=== PATIENT | female | born 1960 | race Caucasian/White ===

== ENCOUNTER 2016-05-05 11:36 | Emergency (ER) | payer OTHER ==
[2016-05-05 11:36] VITALS: BMI 21.7
[2016-05-05 12:03] VITALS: O2SAT 100
[2016-05-05] MEDS ORDERED: Sodium Chloride 0.9% 1,000 ML IV STA (12:10)
[2016-05-05 12:17] LABS: ADD MANUAL DIFF? NO
[2016-05-05 12:18] LABS: BASO # 0.02 K/mm3 (0.0-2.0); BASO % 0.4 % (0.0-3.0); EOS # 0.1 (0.0-0.7); EOS % 1.4 % (1.5-5.0); GRAN # 0.98 (1.4-6.5); HEMATOCRIT 41.5 % (36.0-48.0); LYMPH # 3.7 (1.2-3.4); MEAN CELL VOLUME 87.6 fL (80.0-105.0); MEAN CORPUSCULAR HEMOGLOBIN 29.5 pg (25.0-35.0); MEAN CORPUSCULAR HGB CONC 33.7 g/dl (31.0-37.0); MEAN PLATELET VOLUME 12.3 fl (7.0-11.0); MONO # 0.4 (0.1-0.6); MONO % 7.9 % (1.0-6.0); PLATELET COUNT 141 10^3/uL (120.0-450.0); WHITE BLOOD COUNT 5.2 10^3/ul (4.5-11.0)
--- NOTE | 2016-05-05 12:18 | ED PDOC ---
Arrival/HPI - General Chief Complaint: Chest Pain Time Seen by Provider: 05/05/16 11:39 Historian: Patient - History of Present Illness Narrative History of Present Illness (Text): 05/05/16 12:12 55 year old male presents to the emergency department with chest congestion since yesterday. She states she was feeling lightheaded/dizzy yesterday. She also reports she saw a weird "black line" that went down her visual field which spontaneously resolved. No loss of consciousness. Patient states she has not been drinking or eating well the past couple of days. She reports her niece has a cold. Denies headache, chest pain, or back pain. Time/Duration: 24 hours Symptom Onset: Gradual Symptom Course: Unchanged Modifying Factors (Text): None Associated Symptoms (Text): None Past Medical History - Provider Review Nursing Documentation Reviewed: Yes - Infectious Disease Hx of Infectious Diseases: None - Tetanus Immunization Tetanus Immunization: Unknown - Cardiac Hx Hyperlipemia: Yes - Pulmonary Hx Respiratory Disorders: No - Neurological Hx Neurological Disorder: No - HEENT Hx HEENT Disorder: No - Renal Hx Renal Disorder: No - Endocrine/Metabolic Hx Endocrine Disorders: No - Hematological/Oncological Hx Blood Disorders: No - Integumentary Hx Dermatological Disorder: No - Musculoskeletal/Rheumatological Hx Musculoskeletal Disorders: No - Gastrointestinal Hx Gastritis: Yes - Genitourinary/Gynecological Hx Genitourinary Disorders: No - Psychiatric Hx Psychophysiologic Disorder: No Hx Depression: No Hx Emotional Abuse: No Hx Physical Abuse: No Hx Substance Use: No - Surgical History Hx Section: Yes - Anesthesia Hx Anesthesia: Yes Hx Anesthesia Reactions: No Hx Malignant Hyperthermia: No - Suicidal Assessment Feels Threatened In Home Enviroment: No Family/Social History - Physician Review Nursing Documentation Reviewed: Yes Family/Social History: Unknown Family HX Smoking Status: Never Smoked Hx Alcohol Use: No Hx Substance Use: No Hx Substance Use Treatment: No Allergies/Home Meds Allergies/Adverse Reactions: Allergies No Known Allergies Allergy (Verified 05/05/16 11:49) Home Medications: Home Meds Medication Instructions Recorded Confirmed Pantoprazole [Protonix] 40 mg PO DAILY 05/04/14 05/05/16 Simvastatin [Zocor] 20 mg PO DAILY 07/08/15 05/05/16 Review of Systems - Physician Review All systems were reviewed & negative as marked: Yes - Review of Systems Cardiovascular: Other (chest congestion). absent: Chest Pain Musculoskeletal: absent: Back Pain Neurological: absent: Headache Physical Exam Vital Signs Reviewed: Yes Vital Signs Temp Pulse Resp BP Pulse Ox 05/05/16 12:01 69 20 132/63 100 05/05/16 11:46 98.5 F 74 18 122/78 99 Temperature: Afebrile Blood Pressure: Normal Pulse: Regular Respiratory Rate: Normal Appearance: Positive for: Well-Appearing, Non-Toxic, Comfortable Pain Distress: None Mental Status: Positive for: Alert and Oriented X 3 - Systems Exam Head: Present: Atraumatic, Normocephalic Pupils: Present: PERRL Extroacular Muscles: Present: EOMI Conjunctiva: Present: Normal Mouth: Present: Moist Mucous Membranes Neck: Present: Normal Range of Motion Respiratory/Chest: Present: Clear to Auscultation, Good Air Exchange. No: Respiratory Distress, Accessory Muscle Use Cardiovascular: Present: Regular Rate and Rhythm, Normal S1, S2. No: Murmurs Abdomen: Present: Normal Bowel Sounds. No: Tenderness, Distention, Peritoneal Signs Back: Present: Normal Inspection Upper Extremity: Present: Normal Inspection. No: Cyanosis, Edema Lower Extremity: Present: Normal Inspection. No: Edema Neurological: Present: GCS=15, CN II-XII Intact, Speech Normal, Motor Func Grossly Intact, Normal Sensory Function, Normal Cerebellar Funct, Norm Deep Tendon Reflexes, Gait Normal, Memory Normal, Normal 2Pt Descrimination Skin: Present: Warm, Dry, Normal Color. No: Rashes Psychiatric: Present: Alert, Oriented x 3, Normal Insight, Normal Concentration Medical Decision Making ED Course and Treatment: Impression: 55 year old male presents to the emergency department with chest congestion since yesterday. Differential Diagnosis included but are not limited to: Dizziness secondary to dehydration vs viral illness Plan: -- CT head w/o contrast, EKG, Chest X-ray -- IV fluids -- Urinalysis -- Reassess and disposition Prior Visits: Notes and results from previous visits were reviewed. Patient last seen in the ED on 07/08/15 with nausea and discharged home. PROCEDURE: CT HEAD WITHOUT CONTRAST [employer] Service Sales Representative : HAYLEE DELACRUZ MD IMPRESSION: No acute intracranial abnormality. 1.1 cm left frontal parasagittal extra-axial lesion is statistically most compatible with a meningioma. A dedicated MRI of the brain without and with intravenous contrast on a nonemergent basis is advised for further evaluation. Progress Notes: EKG shows NSR at 74 BPM with normal intervals, normal axis, no ST segment elevations, interpreted by me. 05/05/16 14:46 CT head negative. CXR negative. Patient feels better after IVF. She will follow up with her PMD this week. No longer has dizziness. - Lab Interpretations Lab Results: 05/05/16 11:55 05/05/16 11:55 Lab Results 05/05/16 11:55: WBC 5.2, RBC 4.74, Hgb 14.0, Hct 41.5, MCV 87.6, MCH 29.5, MCHC 33.7, RDW 13.0, Plt Count 141, MPV 12.3 H, Gran % 19.0 L, Lymph % (Auto) 71.3 H , [place] % (Auto) 7.9 H, Eos % (Auto) 1.4 L, Baso % (Auto) 0.4, Gran # 0.98 L, Lymph # 3.7 H, [place] # 0.4, Eos # 0.1, Baso # 0.02, Sodium 141, Potassium 3.9, Chloride 102, Carbon Dioxide 27, Anion Gap 16, BUN 19, Creatinine 0.9, Est GFR ( Amer) > 60, Est GFR (Non-Af Amer) > 60, Random Glucose 96, Calcium 9.8, Magnesium 2.0, Total Bilirubin 0.6, AST 23, ALT 20, Alkaline Phosphatase 54, Total Protein 8.0, Albumin 4.2, Globulin 3.8, Albumin/Globulin Ratio 1.1 - RAD Interpretation Radiology Orders: 05/05/16 12:09 CHEST TWO VIEWS (PA/LAT) [RAD] Stat 05/05/16 12:10 HEAD W/O CONTRAST [CT] Stat - EKG Interpretation Interpreted by ED Physician: Yes Type: 12 lead EKG - Medication Orders Current Medication Orders: Discontinued Medications Sodium Chloride (Sodium Chloride 0.9%) 1,000 mls @ 999 mls/hr IV .Q1H1M STA Stop: 05/05/16 13:10 Last Admin: 05/05/16 12:44 Dose: 999 MLS/HR eMAR Start Stop Document 05/05/16 12:44 GROUNDMAN (Rec: 05/05/16 12:45 GROUNDMAN [id number]) Intravenous Solution Start Date 05/05/16 Start Time 12:45 End Date 05/05/16 End time 13:45 Total Infusion Time 60 - Scribe Statement The provider has reviewed the documentation as recorded by the Claudia Han Provider Scribe Attestation: All medical record entries made by the Scribe were at my direction and personally dictated by me. I have reviewed the chart and agree that the record accurately reflects my personal performance of the history, physical exam, medical decision making, and the department course for this patient. I have also personally directed, reviewed, and agree with the discharge instructions and disposition. Disposition/Present on Arrival - Present on Arrival Any Indicators Present on Arrival: No History of DVT/PE: No History of Uncontrolled Diabetes: No Urinary Catheter: No History of Decub. Ulcer: No History Surgical Site Infection Following: None - Disposition Have Diagnosis and Disposition been Completed?: Yes Diagnosis: Dizziness Disposition: HOME/ ROUTINE Disposition Time: 14:47 Patient Plan: Discharge Patient Problems: Current Active Problems Problem Status Diagnosed Dizziness Acute Condition: IMPROVED Discharge Instructions (ExitCare): Dizziness (ED) Additional Instructions: Ricardo, thank you for letting us take care of you today. Your provider was Dr. Gale. You were treated for Dizziness. The emergency medical care you received today was directed at your acute symptoms. If you were prescribed any medication, please fill it and take as directed. It may take several days for your symptoms to resolve. Return to the Emergency Department if your symptoms worsen, do not improve, or if you have any other problems. Please contact your doctor or call one of the physicians/clinics you have been referred to that are listed on the Patient Visit Information form that is included in your discharge packet. Bring any paperwork you were given at discharge with you along with any medications you are taking to your follow up visit. Our treatment cannot replace ongoing medical care by a primary care provider (PCP) outside of the emergency department. Thank you for allowing the [facility] team to be part of your care today. If you had an X-Ray or CT scan: A Radiologist will review the ED reading if any change in treatment is needed we will contact you. If you had a blood, urine, or wound culture: It will take several days for the results, if any change in treatment is needed we will contact you. If you had an STI test: It will take 48 hours for the results. Please call after 1 week if you have not heard back. Referrals: [facility] [employer] [facility], [Non-Staff] - Follow up with primary Forms: WORK NOTE
[2016-05-05 12:32] LABS: ALB/GLOB RATIO 1.1 (1.1-1.8); ALKALINE PHOSPHATASE 54 U/L (38-133); ALT/SGPT 20 U/L (7-56); AST/SGOT 23 U/L (15-39); BILIRUBIN,TOTAL 0.6 mg/dL (0.2-1.3); BLOOD UREA NITROGEN 19 mg/dL (7-21); CALCIUM 9.8 mg/dL (8.4-10.5); CARBON DIOXIDE 27 mmol/L (21-33); CHLORIDE 102 mmol/L (98-107); GFR AFRICAN-AMERICAN > 60; GLUCOSE,RANDOM 96 mg/dL (70-110); POTASSIUM 3.9 mmol/L (3.6-5.0); SODIUM 141 mmol/L (132-148)
--- NOTE | 2016-05-05 13:07 | CT ---
PROCEDURE: CT HEAD WITHOUT CONTRAST. HISTORY: Dizziness COMPARISON: None available. TECHNIQUE: Axial computed tomography images were obtained through the head/brain without intravenous contrast. Radiation dose: Total exam DLP = 725.84 mGy-cm. FINDINGS: HEMORRHAGE: No intracranial hemorrhage. BRAIN: Bradley-white matter differentiation is preserved. There is no territorial infarction, vasogenic edema or mass effect. There is a 1.1 cm hyperdense left frontal parasagittal extra-axial lesion without mass effect on the underlying frontal lobe. . A 5 mm high attenuation focus in the subjacent left frontal lobe is thought to be due to partial volume averaging. VENTRICLES: The ventricles are normal in size, shape and configuration. CALVARIUM: The skull base and calvarium are normal. PARANASAL SINUSES: Predominantly clear. MASTOID AIR CELLS: Predominantly clear. OTHER FINDINGS: None. IMPRESSION: No acute intracranial abnormality. 1.1 cm left frontal parasagittal extra-axial lesion is statistically most compatible with a meningioma. A dedicated MRI of the brain without and with intravenous contrast on a nonemergent basis is advised for further evaluation.
[2016-05-05 13:59] LABS: LYMPH % 71.3 % (22.0-35.0)
--- NOTE | 2016-05-05 14:27 | RAD ---
HISTORY: chest congestion r/o pna COMPARISON: 05/18/2014 TECHNIQUE: Chest PA and lateral FINDINGS: LUNGS: Micro COPD. There is no focal consolidation. PLEURA: No significant pleural effusion identified. No pneumothorax apparent. CARDIOVASCULAR: Normal. OSSEOUS STRUCTURES: No significant abnormalities. VISUALIZED UPPER ABDOMEN: Normal. OTHER FINDINGS: None. IMPRESSION: No active pulmonary disease. COPD.
[2016-05-05 14:58] VITALS: BP 107/62; PULSE 58; RESP 18; TEMP 98.6
--- NOTE | 2016-05-05 18:23 | CARD ---
APPROVED REPORT EKG Measurement Heart [id number] <Conclusion> Normal sinus rhythm Normal ECG
== END 2016-05-05 15:01 | disposition home or self-care (01) ==
LOC: ED 12:29
DX: R42 Dizziness and giddiness (principal)
CPT/HCPCS: 70450; 71020; 80053; 83735; 85025; 93005; 96360; 99283; J7040

== ENCOUNTER 2017-07-17 20:20 | Observation (INO) | payer MEDICAID, OTHER ==
--- NOTE | 2017-07-17 20:44 | ED PDOC ---
Arrival/HPI - General Chief Complaint: Weakness/Neurological Deficit Time Seen by Provider: 07/17/17 20:34 Historian: Patient - History of Present Illness Narrative History of Present Illness (Text): 07/17/17 20:43 Abida Ricardo is a 56 year old female, whose past medical history includes hyperlipidemia, who presents to the Emergency department accompanied by family complaining of left-sided facial numbness sensation. Patient states she has been experiencing left-sided facial numbness sensation since yesterday with associated dizziness. Patient notes she feel near-syncopal at times. Patient denies any focal deficits, fever, chills, chest pain, shortness of breath, nausea, vomiting, diarrhea, urinary symptoms, back pain, neck pain, headache, trauma/injury, or any other complaints. Symptom Onset: Gradual Symptom Course: Unchanged Activities at Onset: Light Context: Home Past Medical History - Provider Review Nursing Documentation Reviewed: Yes - Infectious Disease Hx of Infectious Diseases: None - Tetanus Immunization Tetanus Immunization: Unknown - Reproductive Menopause: Yes - Cardiac Hx Hyperlipemia: Yes - Pulmonary Hx Respiratory Disorders: No - Neurological Hx Neurological Disorder: No - HEENT Hx HEENT Disorder: No - Renal Hx Renal Disorder: No - Endocrine/Metabolic Hx Endocrine Disorders: No - Hematological/Oncological Hx Blood Disorders: No - Integumentary Hx Dermatological Disorder: No - Musculoskeletal/Rheumatological Hx Musculoskeletal Disorders: No - Gastrointestinal Hx Gastritis: Yes - Genitourinary/Gynecological Hx Genitourinary Disorders: No - Psychiatric Hx Depression: No Hx Substance Use: No - Surgical History Hx Cholecystectomy: Yes - Anesthesia Hx Anesthesia: Yes Hx Anesthesia Reactions: No Hx Malignant Hyperthermia: No - Suicidal Assessment Feels Threatened In Home Enviroment: No Family/Social History - Physician Review Nursing Documentation Reviewed: Yes Family/Social History: Unknown Family HX Smoking Status: Never Smoked Hx Alcohol Use: No Hx Substance Use: No Hx Substance Use Treatment: No Allergies/Home Meds Allergies/Adverse Reactions: Allergies No Known Allergies Allergy (Verified 07/17/17 20:39) Home Medications: Home Meds Medication Instructions Recorded Confirmed No Known Home Med 07/17/17 07/17/17 Review of Systems - Physician Review All systems were reviewed & negative as marked: Yes - Review of Systems Constitutional: Normal. absent: Fevers Eyes: Normal ENT: Normal Respiratory: Normal. absent: SOB, Cough Cardiovascular: Other (+near-syncopal). absent: Chest Pain Gastrointestinal: Normal. absent: Abdominal Pain, Diarrhea, Nausea, Vomiting Genitourinary Female: Normal. absent: Dysuria, Frequency, Hematuria, Urine Output Changes Musculoskeletal: Normal. absent: Back Pain, Neck Pain Skin: Normal. absent: Rash Neurological: Dizziness, Other (+left facial numbness) Endocrine: Normal Hemo/Lymphatic: Normal Psychiatric: Normal Physical Exam Vital Signs Reviewed: Yes Vital Signs Temp Pulse Resp BP Pulse Ox 07/17/17 20:33 97.6 F 80 18 122/79 100 Temperature: Afebrile Blood Pressure: Normal Pulse: Regular Respiratory Rate: Normal Appearance: Positive for: Well-Appearing, Non-Toxic, Comfortable Pain Distress: None Mental Status: Positive for: Alert and Oriented X 3 - Systems Exam Head: Present: Atraumatic, Normocephalic Pupils: Present: PERRL Extroacular Muscles: Present: EOMI Conjunctiva: Present: Normal Ears: Present: Normal, NORMAL TM, Normal Canal. No: Erythema, TM Bulging, Fluid , TM Perf Mouth: Present: Moist Mucous Membranes Pharnyx: Present: Normal. No: ERYTHEMA, EXUDATE, TONSILS ENLARGED, Peritonsilar Swelling, Uvular Deviation, Muffled/Hoarse Voice, Strider, Soft Palate/Uvular Edema Nose (External): Present: Atraumatic Nose (Internal): Present: Normal Inspection Neck: Present: Normal Range of Motion. No: Meningeal Signs, MIDLINE TENDERNESS , Paraspinal Tenderness Respiratory/Chest: Present: Clear to Auscultation, Good Air Exchange. No: Respiratory Distress, Accessory Muscle Use Cardiovascular: Present: Regular Rate and Rhythm, Normal S1, S2. No: Murmurs Abdomen: No: Tenderness, Distention, Peritoneal Signs Back: Present: Normal Inspection. No: CVA Tenderness, Midline Tenderness, Paraspinal Tenderness Upper Extremity: Present: Normal Inspection. No: Cyanosis, Edema Lower Extremity: Present: Normal Inspection. No: Edema Neurological: Present: GCS=15, CN II-XII Intact, Speech Normal, Motor Func Grossly Intact, Normal Sensory Function, Normal Cerebellar Funct, Gait Normal, Memory Normal Skin: Present: Warm, Dry, Normal Color. No: Rashes Psychiatric: Present: Alert, Oriented x 3, Normal Insight, Normal Concentration Medical Decision Making ED Course and Treatment: 07/17/17 20:43 Impression: 56 year old female complaining of left-sided facial numbness, dizziness, and near-syncope. Plan: -- CT Head w/o contrast -- EKG -- Chest X-ray -- Labs, cardiac enzymes -- IV fluids -- Reassess and disposition Prior Visits: Notes and results from previous visits were reviewed. Progress Notes: 07/17/17 21:05 Reviewed EKG, NSR at [address]-segment elevations or depressions, no T-wave inversions, normal intervals. 07/17/17 21:19 Chest X-ray reviewed, shows no acute processes. 07/17/17 23:14 CT Head shows: Brain: Unremarkable. No hemorrhage. No significant white matter disease. No edema. Ventricles: Unremarkable. No ventriculomegaly. Bones/joints: Unremarkable. No acute fracture. Soft tissues: Unremarkable. Sinuses: Unremarkable as visualized. No acute sinusitis. Mastoid air cells: Unremarkable as visualized. No mastoid effusion. IMPRESSION: No evidence of an acute intracranial abnormality 07/17/17 23:[address] Chester, who is aware and agree with plan. Accepts pt in hospitalist service. Pt will go to remote telemetry observation for near- syncope. residential program coordinator notified. - Lab Interpretations Lab Results: 07/17/17 21:08 07/17/17 21:08 Lab Results 07/17/17 21:08: Sodium 146, Potassium 4.0, Chloride 106, Carbon Dioxide 28, Anion Gap 16, BUN 18, Creatinine 1.0, Est GFR ( Amer) > 60, Est GFR (Non- Af Amer) 58, Random Glucose 110, Calcium 9.5, Total Bilirubin 0.3, AST 19, ALT 30, Alkaline Phosphatase 56, Lactate Dehydrogenase 419, Total Creatine Kinase 107, Troponin I < 0.01, Total Protein 7.6, Albumin 4.1, Globulin 3.5, Albumin/ Globulin Ratio 1.2 07/17/17 21:08: PT 11.5, INR 1.01, APTT 29.0 07/17/17 21:08: WBC 6.1 D, RBC 4.61, Hgb 13.5, Hct 39.7, MCV 86.1, MCH 29.3, MCHC 34.0, RDW 13.1, Plt Count 137, MPV 11.9 H, Gran % 32.2 L, Lymph % (Auto) 58.6 H, [place] % (Auto) 7.2 H, Eos % (Auto) 1.3 L, Baso % (Auto) 0.7, Gran # 1.95 , Lymph # (Auto) 3.6 H, [place] # (Auto) 0.4, Eos # (Auto) 0.1, Baso # (Auto) 0.04 I have reviewed the lab results: Yes - RAD Interpretation Radiology Orders: 07/17/17 20:45 CHEST PORTABLE [RAD] Stat 07/17/17 20:47 HEAD W/O CONTRAST [CT] Stat Desulphurizer Operator: ED Physician, Radiologist - EKG Interpretation Interpreted by ED Physician: Yes Type: 12 lead EKG - Medication Orders Current Medication Orders: Sodium Chloride (Sodium Chloride 0.9%) 1,000 mls @ 100 mls/hr IV .Q10H KARLIE Last Admin: 07/17/17 21:16 Dose: 100 mls/hr eMAR Start Stop Document 07/17/17 21:16 HI (Rec: 07/17/17 21:17 HI [id number]) Intravenous Solution Start Date 07/17/17 Start Time 21:17 Discontinued Medications Aspirin (Aspirin) 325 mg PO ONCE STA Stop: 07/17/17 23:48 - Scribe Statement The provider has reviewed the documentation as recorded by the Scribdonna Howard All medical record entries made by the Scribe were at my direction and personally dictated by me. I have reviewed the chart and agree that the record accurately reflects my personal performance of the history, physical exam, medical decision making, and the department course for this patient. I have also personally directed, reviewed, and agree with the discharge instructions and disposition. Disposition/Present on Arrival - Present on Arrival Any Indicators Present on Arrival: No History of DVT/PE: No History of Uncontrolled Diabetes: No Urinary Catheter: No History of Decub. Ulcer: No History Surgical Site Infection Following: None - Disposition Have Diagnosis and Disposition been Completed?: Yes Diagnosis: Near syncope, Dizziness, Facial paresthesia Disposition: HOSPITALIZED Disposition Time: 00:00 Patient Plan: Observation Condition: STABLE Referrals: Eula Pop MD [Primary Care Provider] - Follow up with primary Forms: [employer] ([place])
[2017-07-17] MEDS: Sodium Chloride 0.9% 1,000 ML IV SCH (21:16)
[2017-07-17 21:17] LABS: BASO # 0.04 K/mm3 (0.0-2.0); BASO % 0.7 % (0.0-3.0); EOS # 0.1 (0.0-0.7); EOS % 1.3 % (1.5-5.0); GRAN # 1.95 (1.4-6.5); GRAN % 32.2 % (50.0-68.0); HEMOGLOBIN 13.5 g/dL (12.0-16.0); LYMPH # 3.6 (1.2-3.4); LYMPH % 58.6 % (22.0-35.0); MEAN CELL VOLUME 86.1 fl (80.0-105.0); MEAN CORPUSCULAR HEMOGLOBIN 29.3 pg (25.0-35.0); MEAN PLATELET VOLUME 11.9 fl (7.0-11.0); MONO # 0.4 (0.1-0.6); MONO % 7.2 % (1.0-6.0); RBC 4.61 10^6/uL (3.5-6.1); RED CELL DISTRIBUTION WIDTH 13.1 % (11.5-14.5); WHITE BLOOD COUNT 6.1 10^3/ul (4.5-11.0)
[2017-07-17 21:24] LABS: ALB/GLOB RATIO 1.2 (1.1-1.8); ALBUMIN 4.1 g/dL (3.0-4.8); ALT/SGPT 30 U/L (7-56); AST/SGOT 19 U/L (14-36); BLOOD UREA NITROGEN 18 mg/dL (7-21); CALCIUM 9.5 mg/dL (8.4-10.5); GFR AFRICAN-AMERICAN > 60; GFR NON-AFRICAN AMERICAN 58
[2017-07-17 21:32] LABS: INR 1.01 (0.93-1.08); PROTHROMBIN TIME 11.5 SECONDS (9.4-12.5)
[2017-07-17 21:35] LABS: TROPONIN I < 0.01 ng/mL
--- NOTE | 2017-07-17 22:52 | CT ---
EXAM: CT Head Without Intravenous Contrast CLINICAL HISTORY: 56 years old, female; Signs and symptoms; Dizziness; Additional info: Dizzy/near syncope TECHNIQUE: Axial computed tomography images of the head/brain without intravenous contrast. All CT scans at this facility use one or more dose reduction techniques, viz.: automated exposure control; ma/kV adjustment per patient size (including targeted exams where dose is matched to indication; i.e. head); or iterative reconstruction technique. Coronal and sagittal reformatted images were created and reviewed. COMPARISON: CT - HEAD W/O CONTRAST 2016-05-05 12:31 FINDINGS: Brain: Unremarkable. No hemorrhage. No significant white matter disease. No edema. Ventricles: Unremarkable. No ventriculomegaly. Bones/joints: Unremarkable. No acute fracture. Soft tissues: Unremarkable. Sinuses: Unremarkable as visualized. No acute sinusitis. Mastoid air cells: Unremarkable as visualized. No mastoid effusion. IMPRESSION: No evidence of an acute intracranial abnormality.
--- NOTE | 2017-07-18 00:55 | CP.PCM.HP ---
<Wilfrid Corrales - Last Filed: 07/18/17 05:01> History of Present Illness - History of Present Illness History of Present Illness: PGY-1 H&P for Dr. Chester This is a 56 year old female with PMHx HLD and gastritis who presented for left sided facial numbness along with dizziness. Patient states that this first started yesterday, and there were no inciting factors at the time. Patient states that she has never had this happen before. Patient denies any alleviating or relieving factors. She does state that since coming to the ED, her symptoms have improved. She is no longer dizzy or numb. However, she is currently complaining of weakness and mild headache. Patient denies fever, chills, chest pain, dyspnea. However, she does complain of intermittent palpitations. She states that she has had a stress test many years ago which was reportedly normal. PMHx: HLD and gastritis PSHx: x2 Allergies: NKDA Social: Denies tobacco, alcohol, drugs. Occupation is homemaker. Family Hx: Father with cirrhosis. Mother with HTN and asthma. PMD: Dr. Pop Home meds: Prilosec OTC Present on Admission - Present on Admission Any Indicators Present on Admission: No Review of Systems - Constitutional Constitutional: absent: Chills, Fever - EENT Eyes: absent: Change in Vision Ears: absent: Decreased Hearing Nose/Mouth/Throat: absent: Nasal Congestion - Cardiovascular Cardiovascular: Palpitations (intermittent). absent: Chest Pain - Respiratory Respiratory: absent: Dyspnea - Gastrointestinal Gastrointestinal: absent: Abdominal Pain, Nausea, Vomiting - Genitourinary Genitourinary: absent: Dysuria - Musculoskeletal Musculoskeletal: absent: Back Pain - Integumentary Integumentary: absent: Rash - Neurological Neurological: Dizziness (improved), Numbness (improved), Headaches (mild), Weakness - Psychiatric Psychiatric: absent: Anxiety - Endocrine Endocrine: Palpitations Past Patient History - Infectious Disease Hx of Infectious Diseases: None - Tetanus Immunizations Tetanus Immunization: Unknown - Past Social History Smoking Status: Never Smoked - PULMONARY Hx Respiratory Disorders: No - NEUROLOGICAL Hx Neurological Disorder: No - HEENT Hx HEENT Problems: No - RENAL Hx Chronic Kidney Disease: No - ENDOCRINE/METABOLIC Hx Endocrine Disorders: No - HEMATOLOGICAL/ONCOLOGICAL Hx Blood Disorders: No - INTEGUMENTARY Hx Dermatological Problems: No - MUSCULOSKELETAL/RHEUMATOLOGICAL Hx Musculoskeletal Disorders: No - GASTROINTESTINAL Hx Gastritis: Yes - GENITOURINARY/GYNECOLOGICAL Hx Genitourinary Disorders: No - PSYCHIATRIC Hx Depression: No Hx Substance Use: No - SURGICAL HISTORY Hx Cholecystectomy: Yes - ANESTHESIA Hx Anesthesia: Yes Hx Anesthesia Reactions: No Hx Malignant Hyperthermia: No Meds Allergies/Adverse Reactions: Allergies Allergy/AdvReac Type Severity Reaction Status Date / Time No Known Allergies Allergy Verified 07/17/17 20:39 Physical Exam - Constitutional Appears: No Acute Distress - Head Exam Head Exam: ATRAUMATIC, NORMOCEPHALIC - Eye Exam Eye Exam: EOMI, PERRL - ENT Exam ENT Exam: Mucous Membranes Moist - Respiratory Exam Respiratory Exam: Clear to Auscultation Bilateral, NORMAL BREATHING PATTERN. absent: Rales, Rhonchi, Wheezes - Cardiovascular Exam Cardiovascular Exam: REGULAR RHYTHM, +S1, +S2 - GI/Abdominal Exam GI & Abdominal Exam: Normal Bowel Sounds, Soft. absent: Distended, Tenderness - Extremities Exam Extremities exam: Negative for: pedal edema - Neurological Exam Neurological exam: Alert, CN II-XII Intact, Oriented x3 Additional comments: Muscle strength 5/5 in all extremities. Sensations intact in all extremities. - Psychiatric Exam Psychiatric exam: Normal Affect, Normal Mood - Skin Skin Exam: Dry, Warm Results - Vital Signs Recent Vital Signs: Last Vital Signs Temp 97.6 F 07/17/17 20:33 Pulse 80 07/17/17 20:33 Resp 18 07/17/17 20:33 BP 122/79 07/17/17 20:33 Pulse Ox 100 07/17/17 20:33 - Labs Result Diagrams: 07/18/17 03:25 07/18/17 03:25 Assessment & Plan - Assessment and Plan (Free Text) Assessment: This is a 56 year old female with PMHx HLD and gastritis who presented for left sided facial numbness along with dizziness. Plan: 1. Facial Numbness -Resolving -Head CT negative for acute pathology per report -carotid dopplers -trending troponins and EKG -echocardiogram ordered -f/u folate and B12 -Neurology consulted Discussed with Dr. Nemo Corrales PGY-1 <Omar Chester - Last Filed: 07/18/17 05:44> Results - Vital Signs Recent Vital Signs: Last Vital Signs Temp 97.9 F 07/18/17 02:29 Pulse 58 L 07/18/17 02:29 Resp 20 07/18/17 02:29 BP 129/82 07/18/17 02:29 Pulse Ox 99 07/18/17 01:45 - Labs Result Diagrams: 07/18/17 03:25 07/18/17 03:25 Labs: Laboratory Results - last 24 hr 07/18/17 07/18/17 03:25 03:25 WBC 7.0 RBC 4.85 Hgb 14.3 Hct 42.4 MCV 87.4 MCH 29.5 MCHC 33.7 RDW 13.1 Plt Count 145 MPV 11.9 H Gran % 25.9 L Lymph % (Auto) 64.3 H [place] % (Auto) 8.0 H Eos % (Auto) 1.4 L Baso % (Auto) 0.4 Gran # 1.80 Lymph # (Auto) 4.5 H [place] # (Auto) 0.6 Eos # (Auto) 0.1 Baso # (Auto) 0.03 Sodium 145 Potassium 4.5 Chloride 108 H Carbon Dioxide 26 Anion Gap 16 BUN 15 Creatinine 0.9 Est GFR ( Amer) > 60 Est GFR (Non-Af Amer) > 60 Random Glucose 103 Calcium 9.6 Phosphorus 3.6 Magnesium 2.0 Total Bilirubin 0.2 AST 21 ALT 27 Alkaline Phosphatase 65 Troponin I < 0.01 Total Protein 7.9 Albumin 4.4 Globulin 3.5 Albumin/Globulin Ratio 1.3 Triglycerides 136 Cholesterol 234 H LDL Cholesterol Direct 154 H HDL Cholesterol 45 Attending/Attestation - Attestation I have personally seen and examined this patient.: Yes I have fully participated in the care of the patient.: Yes I have reviewed all pertinent clinical information: Yes Notes (Text): 07/18/17 05:43 Patient was seen when she was in . Agree with history, physical examination, assessment and plan.
[2017-07-18 02:12] VITALS: O2SAT 99
[2017-07-18 02:48] VITALS: RESP 20; BMI 22.6
[2017-07-18 03:46] LABS: ALB/GLOB RATIO 1.3 (1.1-1.8); ALBUMIN 4.4 g/dL (3.0-4.8); ALT/SGPT 27 U/L (7-56); AST/SGOT 21 U/L (14-36); BLOOD UREA NITROGEN 15 mg/dL (7-21); CALCIUM 9.6 mg/dL (8.4-10.5); GFR AFRICAN-AMERICAN > 60; GFR NON-AFRICAN AMERICAN > 60; HDL CHOLESTEROL 45 mg/dL (29-60)
[2017-07-18 03:49] LABS: BASO # 0.03 K/mm3 (0.0-2.0); BASO % 0.4 % (0.0-3.0); EOS # 0.1 (0.0-0.7); EOS % 1.4 % (1.5-5.0); GRAN # 1.8 (1.4-6.5); GRAN % 25.9 % (50.0-68.0); HEMOGLOBIN 14.3 g/dL (12.0-16.0); LYMPH # 4.5 (1.2-3.4); LYMPH % 64.3 % (22.0-35.0); MEAN CELL VOLUME 87.4 fl (80.0-105.0); MEAN CORPUSCULAR HEMOGLOBIN 29.5 pg (25.0-35.0); MEAN CORPUSCULAR HGB CONC 33.7 g/dl (31.0-37.0); MEAN PLATELET VOLUME 11.9 fl (7.0-11.0); MONO # 0.6 (0.1-0.6); RBC 4.85 10^6/uL (3.5-6.1); RED CELL DISTRIBUTION WIDTH 13.1 % (11.5-14.5)
[2017-07-18 03:57] LABS: LDL CHOLESTEROL 154 mg/dL (0-129); TROPONIN I < 0.01 ng/mL
[2017-07-18] MEDS: Sodium Chloride 0.9% 1,000 ML IV SCH (05:57)
[2017-07-18] MEDS ORDERED: Pantoprazole 40 mg EC Tab PO SCH (06:00)
[2017-07-18 07:06] LABS: FREE T4 1.03 ng/dL (0.78-2.19)
[2017-07-18 08:07] VITALS: BP 100/65; TEMP 97.3
--- NOTE | 2017-07-18 09:47 | RAD ---
HISTORY: Code Stroke COMPARISON: 05/05/2016 FINDINGS: LUNGS: No active pulmonary disease. PLEURA: No significant pleural effusion identified, no pneumothorax apparent. CARDIOVASCULAR: Normal. OSSEOUS STRUCTURES: No significant abnormalities. VISUALIZED UPPER ABDOMEN: Normal. OTHER FINDINGS: None. IMPRESSION: No active disease.
--- NOTE | 2017-07-18 11:16 | CARD ---
APPROVED REPORT EKG Measurement Heart [id number] <Conclusion> Normal sinus rhythm NSSTW changes No change
--- NOTE | 2017-07-18 11:27 | US ---
PROCEDURE: Bilateral russell artery duplex ultrasound HISTORY: Carotid stenosis TIA PHYSICIAN(S): Milan Santiago MD. TECHNIQUE: Duplex sonography and color-flow Doppler were used to evaluate the carotid bifurcations and limited segments of the vertebral arteries bilaterally. FINDINGS: There is mild smooth plaque noted at the carotid bifurcations bilaterally. The peak systolic velocity in the proximal right internal carotid artery is 79 cm/sec. This corresponds to a 0-19 percent proximal right ICA stenosis. Normal systolic velocities are noted in the proximal right external carotid artery. There is antegrade flow in the right vertebral artery. The peak systolic velocity in the proximal left internal carotid artery is 83 cm/sec. This corresponds to a 0-19 percent proximal left ICA stenosis. Normal systolic velocities are noted in the proximal left external carotid artery. There is antegrade flow in the left vertebral artery. IMPRESSION: 1. Bilateral 0-19 percent proximal ICA stenoses. 2. Antegrade flow in both vertebral arteries.
[2017-07-18 13:11] LABS: FOLATE 14.6 ng/mL
--- NOTE | 2017-07-18 14:26 | CARD ---
APPROVED REPORT EKG Measurement Heart [id number] <Conclusion> Sinus bradycardia Otherwise normal ECG
--- NOTE | 2017-07-18 15:22 | MRI ---
PROCEDURE: MRI BRAIN WITHOUT CONTRAST HISTORY: r/o stroke COMPARISON: 01/31/2014 TECHNIQUE: Multiplanar, multisequence MR images of the brain were obtained without intravenous contrast enhancement. FINDINGS: HEMORRHAGE: None DWI: No evidence of an acute or early subacute infarction. BRAIN PARENCHYMA: No mass effect or edema. No atrophy or chronic microvascular ischemic changes. VENTRICLES: Unremarkable. No hydrocephalus. CRANIUM: Unremarkable. ORBITS: Grossly unremarkable. PARANASAL SINUSES/MASTOIDS: Clear VASCULAR SYSTEM: Skull base flow voids intact. OTHER FINDINGS: None. IMPRESSION: Unremarkable non contrast enhanced MRI of the brain.
[2017-07-18 16:54] VITALS: PULSE 69
--- NOTE | 2017-07-18 21:02 | CP.PCM.DIS ---
Provider - Provider Date of Admission: 07/17/17 23:53 Attending physician: Arsenio Sanabria MD Primary care physician: Eula Pop MD Consults: Neurology: Dr. Rider Time Spent in preparation of Discharge (in minutes): 40 Diagnosis - Discharge Diagnosis (1) Dizziness Status: Acute Priority: Medium (2) Facial paresthesia Status: Acute Priority: Medium (3) Gastritis Status: Chronic Priority: Medium (4) Dyslipidemia Status: Chronic Priority: High Hospital Course - Lab Results Lab Results: Most Recent Lab Values WBC 7.0 10^3/ul (4.5-11.0) 07/18/17 03:25 RBC 4.85 10^6/uL (3.5-6.1) 07/18/17 03:25 Hgb 14.3 g/dL (12.0-16.0) 07/18/17 03:25 Hct 42.4 % (36.0-48.0) 07/18/17 03:25 MCV 87.4 fl (80.0-105.0) 07/18/17 03:25 MCH 29.5 pg (25.0-35.0) 07/18/17 03:25 MCHC 33.7 g/dl (31.0-37.0) 07/18/17 03:25 RDW 13.1 % (11.5-14.5) 07/18/17 03:25 Plt Count 145 10^3/uL (120.0-450.0) 07/18/17 03:25 MPV 11.9 fl (7.0-11.0) H 07/18/17 03:25 Gran % 25.9 % (50.0-68.0) L 07/18/17 03:25 Lymph % (Auto) 64.3 % (22.0-35.0) H 07/18/17 03:25 [place] % (Auto) 8.0 % (1.0-6.0) H 07/18/17 03:25 Eos % (Auto) 1.4 % (1.5-5.0) L 07/18/17 03:25 Baso % (Auto) 0.4 % (0.0-3.0) 07/18/17 03:25 Gran # 1.80 (1.4-6.5) 07/18/17 03:25 Lymph # (Auto) 4.5 (1.2-3.4) H 07/18/17 03:25 [place] # (Auto) 0.6 (0.1-0.6) 07/18/17 03:25 Eos # (Auto) 0.1 (0.0-0.7) 07/18/17 03:25 Baso # (Auto) 0.03 K/mm3 (0.0-2.0) 07/18/17 03:25 PT 11.5 SECONDS (9.4-12.5) 07/17/17 21:08 INR 1.01 (0.93-1.08) 07/17/17 21:08 APTT 29.0 Seconds (25.1-36.5) 07/17/17 21:08 Sodium 145 mmol/L (132-148) 07/18/17 03:25 Potassium 4.5 mmol/L (3.6-5.0) 07/18/17 03:25 Chloride 108 mmol/L (98-107) H 07/18/17 03:25 Carbon Dioxide 26 mmol/L (21-33) 07/18/17 03:25 Anion Gap 16 (10-20) 07/18/17 03:25 BUN 15 mg/dL (7-21) 07/18/17 03:25 Creatinine 0.9 mg/dl (0.7-1.2) 07/18/17 03:25 Est GFR ( Amer) > 60 07/18/17 03:25 Est GFR (Non-Af Amer) > 60 07/18/17 03:25 Random Glucose 103 mg/dL (70-110) 07/18/17 03:25 Calcium 9.6 mg/dL (8.4-10.5) 07/18/17 03:25 Phosphorus 3.6 mg/dL (2.5-4.5) 07/18/17 03:25 Magnesium 2.0 mg/dL (1.7-2.2) 07/18/17 03:25 Total Bilirubin 0.2 mg/dL (0.2-1.3) 07/18/17 03:25 AST 21 U/L (14-36) 07/18/17 03:25 ALT 27 U/L (7-56) 07/18/17 03:25 Alkaline Phosphatase 65 U/L (38-126) 07/18/17 03:25 Lactate Dehydrogenase 419 U/L (333-699) 07/17/17 21:08 Total Creatine Kinase 107 U/L (35-230) 07/17/17 21:08 Troponin I < 0.01 ng/mL 07/18/17 08:45 Total Protein 7.9 g/dL (5.8-8.3) 07/18/17 03:25 Albumin 4.4 g/dL (3.0-4.8) 07/18/17 03:25 Globulin 3.5 gm/dL 07/18/17 03:25 Albumin/Globulin Ratio 1.3 (1.1-1.8) 07/18/17 03:25 Triglycerides 136 mg/dL (35-160) 07/18/17 03:25 Cholesterol 234 mg/dL (130-200) H 07/18/17 03:25 LDL Cholesterol Direct 154 mg/dL (0-129) H 07/18/17 03:25 HDL Cholesterol 45 mg/dL (29-60) 07/18/17 03:25 Vitamin B12 457 pg/mL (239-931) 07/18/17 03:25 Folate 14.6 ng/mL 07/18/17 03:25 Free T4 1.03 ng/dL (0.78-2.19) 07/18/17 05:30 TSH 3rd Generation 3.93 mIU/mL (0.46-4.68) 07/18/17 05:30 - Hospital Course Hospital Course: This is a 56 year old female with a past medical history of dyslipidemia and gastritis who presented for left sided facial numbness along with dizziness. Patient states that this first started yesterday, and there were no inciting factors at the time. Patient states that she has never had this happen before. Patient denies any alleviating or relieving factors. She does state that since coming to the ED, her symptoms have improved. Patient denies fever, chills, chest pain, dyspnea. However, she does complain of intermittent palpitations. Patient was re-evaluated later that morning stating her symptoms had completely resolved. Patient was then scheduled for an MRI of the brain which revealed negative findings of intracranial pathology. Echocardiogram revealed mild tricuspid regurgitation and carotid ultrasound revealed bilateral 0-19% proximal ICA stenoses. Patient was noted to have dyslipidemia on labs upon being admitted for which she was prescribed lipitor and aspirin upon discharge. Patient was in agreement with plan of discharged and cleared by neurology, patient was then discharged. Case discussed and reviewed with Dr. Elly Edwards PGY1 Discharge Exam - Head Exam Head Exam: ATRAUMATIC, NORMAL INSPECTION, NORMOCEPHALIC - Eye Exam Eye Exam: EOMI, Normal appearance - Respiratory Exam Respiratory Exam: Clear to PA & Lateral, UNREMARKABLE. absent: Wheezes - Cardiovascular Exam Cardiovascular Exam: REGULAR RHYTHM, +S1, +S2 - GI/Abdominal Exam GI & Abdominal Exam: Normal Bowel Sounds, Unremarkable - Extremities Exam Extremities exam: normal inspection - Neurological Exam Neurological exam: Alert, CN II-XII Intact, Normal Gait, Oriented x3 - Psychiatric Exam Psychiatric exam: Normal Affect, Normal Mood - Skin Skin Exam: Normal Color, Warm Discharge Plan - Discharge Medications Prescriptions: Aspirin [Adult Aspirin Regimen] 81 mg PO DAILY #14 tablet. Atorvastatin [Lipitor] 40 mg PO DIN #14 tab Omeprazole 20 mg PO DAILY #14 tablet.dr - Follow Up Plan Condition: STABLE Disposition: HOME/ ROUTINE Instructions: Low Cholesterol, Saturated Fat, and Trans Fat Diet , Stroke (DC) , Transient Ischemic Attack (DC), Paresthesias (DC), Near Fainting (DC) Additional Instructions: Follow up with Primary Care physician in 1 week. Please take your medication as prescribed. If you experience any Shortness of breath Chest pain Change in Mental status numbness or paralysis call you primary care physician and go to the nearest Emergency room. Referrals: Eula Pop MD [Primary Care Provider] -
--- NOTE | 2017-07-19 09:29 | CARD ---
APPROVED REPORT EXAM: Two-dimensional and M-mode echocardiogram with Doppler and color Doppler. Other Information Quality : GoodRhythm : INDICATION Syncope Palpitations 2D DIMENSIONS Left Atrium (2D)3.1 (1.6-4.0cm)IVSd0.9 (0.7-1.1cm) LVDd3.2 (3.9-5.9cm)PWd1.1 (0.7-1.1cm) LVDs2.3 (2.5-4.0cm)FS (%) 29.2 % LVEF (%)57.6 (>50%) M-Mode DIMENSIONS Aortic Root2.20 (2.2-3.7cm)Aortic Cusp Exc.1.60 (1.5-2.0cm) Aortic Valve AoV Peak Illllkco122.0cm/[place] Peak GR.8mmHg Mitral Valve E/A ratio0.0 TDI E/Lateral E'0.0E/Medial E'0.0 Tricuspid Valve TR Peak [id number] [id number] Peak Gr.21mmHg [id number] LEFT VENTRICLE The left ventricle is normal size. There is normal left ventricular wall thickness. The left ventricular function is normal. The left ventricular ejection fraction is within the normal range. There is normal LV segmental wall motion. RIGHT VENTRICLE The right ventricle is normal size. ATRIA The left atrium size is normal. The right atrium size is normal. The interatrial septum is intact with no evidence for an atrial septal defect. AORTIC VALVE The aortic valve is normal in structure. MITRAL VALVE The mitral valve is normal in structure. Mitral regurgitation is trace. TRICUSPID VALVE The tricuspid valve is normal in structure. The tricuspid valve is normal in structure. There is mild tricuspid regurgitation. PULMONIC VALVE The pulmonic valve is not well visualized. There is trace pulmonic valvular regurgitation. GREAT VESSELS The aortic root is normal in size. PERICARDIAL EFFUSION There is no pericardial effusion. <Conclusion> The left ventricle is normal size. There is normal left ventricular wall thickness. The left ventricular function is normal. There is mild tricuspid regurgitation.
== END 2017-07-18 18:09 | disposition home or self-care (01) ==
LOC: ED 20:20 → ERH 23:53 → 3RNO 07-18 02:02
PROVIDERS: ADMIT Hospitalist; ATTEND Internal Medicine
DX: R42 Dizziness and giddiness (principal); R20.2 Paresthesia of skin; K29.70 Gastritis, unspecified, without bleeding; E78.5 Hyperlipidemia, unspecified; I07.1 Rheumatic tricuspid insufficiency; Z90.49 Acquired absence of other specified parts of digestive tract; Z82.49 Family history of ischemic heart disease and other diseases of the circulatory system; Z82.5 Family history of asthma and other chronic lower respiratory diseases; R00.2 Palpitations; R20.0 Anesthesia of skin
CPT/HCPCS: 36415; 70450; 70551; 71045; 80053; 80061; 82550; 82607; 82746; 83615; 83735; 84100; 84439; 84443; 84484; 85025; 85610; 85730; 93005; 93306; 93880; 96361; 96374; 97116; 97161; 99285; G0378; G8978; G8979; G8980; J2060; J7030